=== PATIENT | female | born 1975 | race Caucasian/White ===

== ENCOUNTER → 2017-11-22 | Outpatient (CLI) | payer OTHER ==
[~2017-11-22] VITALS: Ht 157.5 cm; Wt 88.9 kg
[~2017-11-22] MED LIST: ADVIL200 MG PO; ALBUTEROL SULF8.5 GM IH; AVELOX400 MG PO; BACTRIM,SEPT1 TABLET PO; BIAXIN500 MG PO; CARAFATE1 GM PO; CLEOCIN300 MG PO; MEDROL DOSEPAK4 MG PO; NORCO 5/3251 TABLET PO; NORCO 7.5/321 TABLET PO; PAXIL20 MG PO; PREDNISONE10 MG PO; PREDNISONE20 MG PO; PREDNISONE5 MG PO; PROAIR HFA8.5 GM IH; PROBIOTIC1 EAC1 PO; PROTONIX40 MG PO; PROVENTIL,2.5 MG/3 M IH; ROBITUSSIN100 MG/5 M PO; SALINE NASAL SP45 ML BOTH NARES; SILVADENE20 GM TP; SYMBICORT60 INHALA1 IH; SYMBICORT60 INHALAT IH; TYLENOL EXTRA500 MG PO; VENTOLIN HFA18 GM IH; XANAX0.5 MG PO; XANAX1 MG PO; ZITHROMAX Z-PA250 MG PO; ZOLOFT50 MG PO; ZOLPIDEM TARTRA10 MG PO
== END | disposition home or self-care (01) ==
LOC: AMB 10:58
DX: Z12.11 Encounter for screening for malignant neoplasm of colon (principal); K29.70 Gastritis, unspecified, without bleeding; K63.5 Polyp of colon; K58.0 Irritable bowel syndrome with diarrhea; Z80.0 Family history of malignant neoplasm of digestive organs; J45.909 Unspecified asthma, uncomplicated; K21.9 Gastro-esophageal reflux disease without esophagitis; Z80.1 Family history of malignant neoplasm of trachea, bronchus and lung
CPT/HCPCS: 88305; 88342 TC; J2250